=== PATIENT | female | born 1975 | race Caucasian/White ===

== ENCOUNTER → 2016-09-26 | Outpatient (CLI) | payer BC ==
[~2016-09-26] MED LIST: MTRUNK PO; PRENTAB26 PO; TYLUNK PO; VITAMIN
--- NOTE | 2016-09-26 15:14 | MAMMOGRAPHY REPORT ---
UNILATERAL LEFT DIGITAL DIAGNOSTIC MAMMOGRAM TOMOSYNTHESIS WITH CAD AND TARGETED LEFT ULTRASOUND: CLINICAL HISTORY: 40-year-old woman presents for a six-month follow-up based on recommendations from an outside institution. Based on the outside reports, an asymmetry was seen in the lateral left br east on CC tomosynthesis slice 14 for which left breast ultrasound was performed. A solid parallel circumscribed 5.8 mm mass was identified in the 1:00 left breast, 4 cm from the nipple that was deem ed probably benign. The patient presents for follow-up in the left breast. TECHNIQUE: Left breast tomosynthesis in addition to standard 2D mammography was performed. Current s pan was also evaluated with a Computer Aided Detection (CAD) system. COMPARISON: Comparison is made to exams dated: 02/25/2016 mammogram and 02/24/2016 mammogram. BREAST COMPOSITION: The tissue of the left breast is heterogeneously dense, which may obscure small masses. FINDINGS: There is persistence of a possible 10 mm mass in the lateral, middle one third of the lef t breast, best seen on tomosynthesis slice 8, that is thought to correlate with the mammographic fin ding based on the 02/24/2016 mammogram. No other obvious mass, focal architectural distortion or milton spicious clustered microcalcifications are seen in the left breast. Further evaluation with ultraso und was performed. Real-time high-resolution ultrasound was performed throughout the entire lateral left breast to asse ss for the mass previously seen. However after sonographic evaluation and finding 2 additional mass es, sonography of the entire medial and retroareolar left breast were also performed. In the 12:00 left breast, 2 cm from the nipple, there is an oval parallel circumscribed hypoechoic solid-appearin g mass measuring 5.2 x 2.1 x 5.5 mm. This is thought to correlate with the mass seen on the prior u ltrasound images which were previously labeled as 1:00 axis, 4 cm from the nipple. Prior measuremen ts were 5.8 x 2.0 x 4.4 mm and this is considered stable. Another lobulated hypoechoic solid-appear ing mass is identified in the 1:00 left breast, 4 cm from the nipple, subdermal in location, measuri ng 6.9 x 2.5 x 4.8 mm. This was not previously documented on ultrasound. Another solid mass is see n in the 3:00 left breast, 2 cm from the nipple, measuring 5.7 x 4.1 x 6.8 mm. This mass is rounder than the other 2 and has some indistinct borders, therefore indeterminate. Definitive characteriza tion with tissue sampling is recommended. Given the stability of the mass in the 12:00 axis, and lo bulated parallel nature of the mass in the 1:00 axis, pending benign pathology results the other 2 m asses can be followed in 6 months time. No other discrete solid or cystic mass is seen throughout t medial left breast on ultrasound. IMPRESSION: ACR BI-RADS CATEGORY 4B: INTERMEDIATE SUSPICION FOR MALIGNANCY, TARGETED ULTRASOUND ACR BI-RADS CATEGORY 4B: INTERMEDIATE SUSPICION FOR MALIGNANCY 1. Ultrasound guided core needle biopsy is recommended for an indeterminate solid 6.8 mm mass in th e 3:00 left breast. Correlation with postprocedure mammograms are committed as this may possibly co rrelate with the original mammographic finding. 2. 2 other lobulated parallel solid appearing masses are identified in the 12:00 and 1:00 axes of t he left breast, that are probably benign. The one currently identified in the 12:00 breast is stabl e comparing to the outside ultrasound images (previously labeled as 1:00 axis). Pending benign path ology results from the biopsy in the 3:00 left breast, the benign-appearing sub-centimeter masses in the 12:00 and 1:00 axes can be followed in 6 months. Annual bilateral mammography will also be due at that time. These results and recommendations were discussed with the patient at the time of the exam. She tent atively scheduled the biopsy prior to leaving our department. Approximately 10% of breast cancers are not detected with mammography. A negative mammographic repor t should not delay biopsy if a clinically suggestive mass is present. Dee Pineda M.D. ay/:09/26/2016 12:17:07 [employer] Supervisor: Amy YOUSSEF)(Doroteo), [facility] letter sent: Abnormal 4/5 BI-RADS Code: ACR BI-RADS Category 4B: Intermediate Suspicion For Malignancy Ultrasound BI-RADS: AC R BI-RADS Category 4B: Intermediate Suspicion For Malignancy
== END | disposition home or self-care (01) ==
LOC: C.MAMM 10:58
PROVIDERS: ATTEND Obstetrics & Gynecology
DX: N64.89 Other specified disorders of breast (principal); N63 Unspecified lump in breast

== ENCOUNTER → 2016-10-13 | Outpatient (CLI) | payer BC ==
--- NOTE | 2016-10-13 11:48 | Discharge Instructions ---
Discharge Instructions Procedure Procedure Date: Oct 13, 2016. Reason for visit: Left Mass. Discharge Discharge Date: Oct 13, 2016. Discharge Diagnosis: status post breast biopsy Instructions Activity Recommendations: Additional Limitations (see below) Return to School/Work: no limitations Recommended Home Diet: No Limitations Provider Instructions: ACTIVITY RECOMMENDATIONS: * No lifting, pushing, pulling or exercising the affected side for three days. RETURN TO SCHOOL/WORK: * You may return to work/school after the procedure, but do not perform any strenuous activities for 24 to 48 hours. MEDICATIONS: * Tylenol (two 325 mg) every four to six hours if needed for mild pain (if not allergic to Tylenol). DIET: * Resume previous diet. SPECIAL CARE INSTRUCTIONS: * Keep biopsy site dry for 24 hours. May shower after 24 hours, but do not soak (bathe) incision. * May remove Tegaderm (plastic patch) tomorrow AFTER showering. * Leave the steri-strips on for one week. Allow the steri-strips to fall off by themselves. If not off after one week, you may remove them. You may place a Bandaid crosswise over the strips, if desired. * Apply ice 10 minutes on and 10 minutes off as needed. * Wear a bra at bedtime to sleep more comfortably for 2-3 days. * Your referring physician should have the results after approximately 5 to 7 business days. * Call for unusual bleeding, fever, drainage, etc or if you have any questions call during normal business hours or after hours call Dr Squires, [phone]. FOLLOW UP VISIT: Follow-up with Referring Physician as scheduled. Allergies Coded Allergies: No Known Allergies (Unverified , none, 07/08/09) [place] Recommendations: Call your doctor if: * Temperature above 101 degrees * Pain not relieved by pain medicine ordered * There is increased drainage or redness from any incision * You have any unanswered questions or concerns. Your Doctors Instructions noted above were prepared by provider Tiny Squires. Patient Signature Section: Patient Instructions Signature Page Yoly Avila Patient (or Guardian) Signature/Date: I have read and understand the instructions given to me by my caregivers. Caregiver/RN/Doctor Signature/Date: The above-named patient and/or guardian has received patient instructions on this date. + Original Patient Signature Page (only) stays with chart. Please make copy for patient.
--- NOTE | 2016-10-13 13:15 | MAMMOGRAPHY REPORT ---
THIS REPORT HAS BEEN AMENDED. ULTRASOUND GUIDED BIOPSY LEFT BREAST: 10/13/2016 CLINICAL HISTORY: Left 3:00 breast mass. PATIENT CONSENT: The procedure, risks and benefits were discussed with the patient and informed writ ten consent was obtained. A timeout was performed immediately prior to the procedure. PROCEDURE DESCRIPTION: With ultrasound guidance, aseptic technique, and lidocaine as the local anest hetic (1% lidocaine to anesthetize the skin and 1% lidocaine with epinephrine to anesthetize the dasia per tissues), the mass of concern in the left 3:00 breast, 2 cm from the nipple, was sampled 4 times with a 14-gauge Achieve biopsy needle. Direct pressure was applied to the site immediately post pr ocedure and hemostasis was achieved. Immediately thereafter, with ultrasound guidance, aseptic tech nique, and lidocaine as the local anesthetic, a metallic localizer clip was placed centrally in the mass. Direct pressure was applied to the site immediately post procedure and hemostasis was achieve d. Postprocedure unilateral mammograms were performed to confirm placement of the clip in the expec sandra location of the breast mass. The patient tolerated the procedure without complication. She was given wound care instructions. The specimens were sent to pathology for analysis. COMPARISON: Comparison is made to exams dated: 09/26/2016 ultrasound, 09/26/2016 mammogram - [facility], 02/25/2016 mammogram, and 02/24/2016 mammogram. IMPRESSION: ULTRASOUND GUIDED BIOPSY Ultrasound guided core needle biopsy of the left 3:00 breast mass, with clip placement. The patient will receive pathology results from her referring provider. Pending benign pathology results, tracy mmend follow-up diagnostic tomosynthesis mammograms and ultrasound of the left breast in 6 months to reevaluate other left breast masses. Tiny Squires M.D. ah/:10/13/2016 12:03:28 Compensation Analyst: Sheila YOUSSEF)(Doroteo), [facility] AMENDMENT: 10/19/2016 Tiny Squires M.D. The pathology from ultrasound-guided biopsy of the left 3:00 breast mass was reviewed on 10/19/2016. The pathology showed a fibroadenoma, which is concordant with the imaging findings. Recommend foll ow-up diagnostic tomosynthesis mammograms and ultrasound of the left breast in 6 months to reevaluat e other left breast masses.
--- NOTE | 2016-10-13 13:16 | MAMMOGRAPHY REPORT ---
UNILATERAL LEFT DIGITAL DIAGNOSTIC MAMMOGRAM: 10/13/2016 CLINICAL HISTORY: Status post ultrasound guided biopsy of the left 3:00 breast mass. TECHNIQUE: Postprocedural left CC and ML views were obtained. COMPARISON: Comparison is made to exams dated: 09/26/2016 mammogram - [facility], 02/25/2016 mammogram, 02/24/2016 mammogram, and 09/26/2016 ultrasound - [facility]. BREAST COMPOSITION: The tissue of the left breast is heterogeneously dense, which may obscure small masses. FINDINGS: A new biopsy marker clip is seen in the left breast status post-ultrasound guided biopsy of the left breast mass. No significant postbiopsy hematoma is seen. IMPRESSION: POST PROCEDURE IMAGING FOR MARKER PLACEMENT New biopsy marker clip status post ultrasound guided biopsy of the left 3:00 breast mass. Pathology results are pending. Pending benign pathology results, recommend follow-up diagnostic tomosynthesi s mammograms and ultrasound of the left breast in 6 months to reevaluate the other left breast adán s. Approximately 10% of breast cancers are not detected with mammography. A negative mammographic repor t should not delay biopsy if a clinically suggestive mass is present. Tiny Squires M.D. ah/:10/13/2016 12:05:11 Blasting Clay Miner: Sheila YOUSSEF)(Doroteo), [facility] BI-RADS Code: Post Procedure Imaging For Marker Placement
== END | disposition home or self-care (01) ==
LOC: C.MAMM 11:04
PROVIDERS: ATTEND Obstetrics & Gynecology
DX: D24.2 Benign neoplasm of left breast (principal)

== ENCOUNTER → 2017-02-23 | Outpatient (CLI) | payer BC | LOC: C.PAPS 14:50 | PROVIDERS: ATTEND Obstetrics & Gynecology | DX: Z01.419 Encounter for gynecological examination (general) (routine) without abnormal findings (principal) ==

== ENCOUNTER → 2017-03-27 | Outpatient (CLI) | payer BC ==
--- NOTE | 2017-03-27 15:25 | MAMMOGRAPHY REPORT ---
BILATERAL DIGITAL DIAGNOSTIC MAMMOGRAM TOMOSYNTHESIS WITH CAD AND TARGETED LEFT ULTRASOUND: 03/27/2017 CLINICAL HISTORY: 41-year-old woman presents for follow-up of probably benign hypoechoic solid parall el masses in the left 12:00 and 1:00 axis identified on prior ultrasound. She is 6 months status pos t biopsy of a fibroadenoma in the 3:00 left breast. Also due for annual bilateral screening mammogra ms. TECHNIQUE: Bilateral breast tomosynthesis in addition to standard 2D mammography was performed. Curre nt study was also evaluated with a Computer Aided Detection (CAD) system. COMPARISON: Comparison is made to exams dated: 10/13/2016 ultrasound biopsy, 10/13/2016 mammogram, 2016 ultrasound, 09/26/2016 mammogram - [facility], 02/25/2016 mammogram, and 02/24/20 16 mammogram. BREAST COMPOSITION: The tissue of both breasts is heterogeneously dense, which may obscure small mas ses. FINDINGS: There is a stable ribbon shaped metallic biopsy marker with associated focal asymmetry in t he 3:00 middle one third of the left breast. The parenchymal pattern of both breasts is similar to p rior mammograms. No obvious new mass, architectural distortion or cluster of microcalcifications is seen. Targeted ultrasound was performed in the left breast 12:00 and 1:00 axes to reevaluate the hypoechoic benign appearing mass is identified on prior ultrasounds. In the left 12:00 breast, 2 cm from the n ipple, there is a lobulated parallel hypoechoic solid-appearing mass measuring 5.1 x 2.3 x 5.6 mm. T he prior outside ultrasound from 02/25/2016 demonstrated this mass and measured it at 5.3 x 5.8 mm. This is unchanged for one year but another 12 month follow-up is recommended to ensure at least 2 yea rs of stability to confirm benignity. In the 1:00 left breast, 4 cm from the nipple, there is a subd ermal lobulated hypoechoic parallel circumscribed mass measuring 5.9 x 7.8 x 2.5 mm. This is unchang ed comparing to the 09/26/2016 ultrasound at which time it measured 6.9 x 2.5 x 4.8 mm, given slight differences in technique. The biopsy proven fibroadenoma in the 3:00 breast is also stable. IMPRESSION: ACR-BI-RADS CATEGORY 3: PROBABLY BENIGN, TARGETED ULTRASOUND ACR-BI-RADS CATEGORY 3: PRO BABLY BENIGN 1. There are stable post biopsy changes in the left breast, without definite mammographic evidence o f malignancy bilaterally. 2. Benign-appearing subcentimeter hypoechoic parallel solid masses in the 12:00 and 1:00 axes of the left breast are stable compared to prior ultrasounds. Another 12 month follow-up targeted ultrasoun d in the left 12:00 and 1:00 axes is recommended to ensure at least 2 years of stability to confirm b enignity. Annual bilateral screening mammography will also be due at that time. These results and recommendations were discussed with the patient at the time of the exam. Approximately 10% of breast cancers are not detected with mammography. A negative mammographic report should not delay biopsy if a clinically suggestive mass is present. Dee Pineda M.D. ay/:03/27/2017 12:36:07 Application Tester: Jael ABDI(R)(M), [facility] letter sent: Follow Up Recommended 3 BI-RADS Code: ACR-BI-RADS Category 3: Probably Benign Ultrasound BI-RADS: ACR-BI-RADS Category 3: Pr obably Benign
== END | disposition home or self-care (01) ==
LOC: C.MAMM 09:48
PROVIDERS: ATTEND Obstetrics & Gynecology
DX: N63 Unspecified lump in breast (principal)

== ENCOUNTER → 2018-02-26 | Outpatient (CLI) | payer BC | END | disposition home or self-care (01) | LOC: C.PAPS 15:17 | PROVIDERS: ATTEND Obstetrics & Gynecology | DX: Z01.411 Encounter for gynecological examination (general) (routine) with abnormal findings (principal) ==

== ENCOUNTER → 2018-03-19 | Outpatient (CLI) | payer BC ==
--- NOTE | 2018-04-06 09:17 | CODING QUERY NO DIAGNOSIS ---
TREATMENT RENDERED WITHOUT A DIAGNOSIS To promote full compliance with coding requirements relating to patient care, physician participation is requested in all cases of plan manager uncertainty. Please assist us with providing a diagnosis/symptom for the test(s) below: A diagnosis/symptom was not documented on your Order. A valid diagnosis/symptom is required to bill all insurances. Please remember that we are unable to code a diagnosis of rule out, probable, possible, questionable, or suspected. Tests that require a diagnosis: DOS: 03/20/18 * COLPOSCOPY AND ENDOCERVICAL BIOPSY DIAGNOSIS: Provider Signature: Date: Thank you [employer] [employer] Once completed, please kindly fax back to [phone] For questions please call [phone]
== END | disposition home or self-care (01) ==
LOC: C.PATHSPEC 14:39
PROVIDERS: ATTEND Obstetrics & Gynecology
DX: R87.612 Low grade squamous intraepithelial lesion on cytologic smear of cervix (LGSIL) (principal); R87.613 High grade squamous intraepithelial lesion on cytologic smear of cervix (HGSIL)

== ENCOUNTER → 2018-03-19 | Outpatient (CLI) | payer BC | END | disposition home or self-care (01) | LOC: C.PAPS 14:52 | PROVIDERS: ATTEND Obstetrics & Gynecology | DX: R87.612 Low grade squamous intraepithelial lesion on cytologic smear of cervix (LGSIL) (principal) ==